=== PATIENT | male | born 1950 | race Caucasian/White ===

== ENCOUNTER 2024-10-03 10:47 | Day surgery (SDC) | payer MEDICARE ==
[~2024-10-03] VITALS: Ht 175.3 cm; Wt 103.9 kg
[~2024-10-03 10:47] MED LIST: AMLO1TAB24 PO; ASPI81TA26 PO; CYAN500T14 PO; FENO145T7 PO; IRBE150T27 PO; METO1TAB33 PO; ROSU40TA81 PO; THERTAB52 PO; VITA100093 PO
[2024-10-03] MEDS: LIDOCAINE 3.5 % 1ML OPHTH TOPICAL GEL OU ONE (12:10)
[2024-10-03] MEDS ORDERED: MIDAZOLAM INJ 2MG/2ML VIAL As Ordered ONE (12:27)
[2024-10-03] MEDS ORDERED: fentaNYL 100 MCG/2 ML INJECTION As Ordered ONE (12:27)
[2024-10-03] MEDS: POVIDONE-IODINE 5% OPHTH PREP SOL 30ML As Ordered ONE (13:23)
[2024-10-03] MEDS: LIDOCAINE 2% W/EPINEPHRINE 20ML VIAL **PRES FREE As Ordered ONE (13:25)
[2024-10-03] MEDS: TOBRADEX OPHTH OINT 3.5 GM As Ordered ONE (13:34)
[2024-10-03 14:03] VITALS: BP 168/75; TEMP 97.3; O2SAT 98
== END 2024-10-03 14:13 | disposition home or self-care (01) ==
LOC: M SDC 10:47
PROVIDERS: ATTEND Ophthalmology
DX: H02.834 Dermatochalasis of left upper eyelid (principal); H02.831 Dermatochalasis of right upper eyelid; I25.10 Atherosclerotic heart disease of native coronary artery without angina pectoris; I10 Essential (primary) hypertension; D86.89 Sarcoidosis of other sites; E78.00 Pure hypercholesterolemia, unspecified; Z79.899 Other long term (current) drug therapy; Z79.82 Long term (current) use of aspirin; Z95.1 Presence of aortocoronary bypass graft; Z87.891 Personal history of nicotine dependence
CPT/HCPCS: 15823; 88300; J2250; J3010